=== PATIENT | female | born 1955 | race Caucasian/White ===

== ENCOUNTER 2017-09-17 13:41 | Emergency (ER) | payer OTHER ==
--- NOTE | 2017-09-17 15:18 | EDPHY ---
H & P Smoking Status: Never smoked Time Seen by Provider: 09/17/17 14:15 HPI/ROS: CHIEF COMPLAINT: Pruritic rash HISTORY OF PRESENT ILLNESS: 62-year-old female presents to the emergency department with pruritic rash. The patient states that she initially thought this was related to a spider bite from over 2 weeks ago in her right thigh. Since that time she has had a rash from her scalp down to her toes. It is intensely itchy. She saw her primary care provider a few days ago and was started on Bactrim antibiotic and was also treated for possible scabies using permethrin 5% cream. She used the permethrin cream as prescribed. She still continued to take Bactrim. Her biggest complaint is the intense itching. She did wash her sheets. No fevers or chills. She does share a bed with her who has no symptoms. She states that she has a history of very sensitive skin. She has been taking a large amount of Benadryl which is now causing her to have a headache. She denies dysphagia. Denies chest pain or difficulty breathing. REVIEW OF SYSTEMS: Constitutional: No fever, no chills. Eyes: No double or blurry vision. ENT: No sore throat. Respiratory: No cough, no shortness of breath. Cardiac: No chest pain. Gastrointestinal: No abdominal pain, vomiting or diarrhea. Genitourinary: No dysuria. Musculoskeletal: No neck or back pain. Skin: Rash as above Neurological: No headache. (Chelsie Fernández) Past Medical/Surgical History: Hysterectomy, hypertension, osteoarthritis, back pain (Chelsie Fernández) Social History: (Chelsie Fernández) Physical Exam: General Appearance: Alert, no distress. 97% on room air. Afebrile. Eyes: Pupils equal and round. Extraocular motions are all intact. ENT: Mouth: Mucous membranes moist. Respiratory: No wheezing, rhonchi, or rales, lungs are clear to auscultation. Cardiovascular: Regular rate and rhythm. Gastrointestinal: Abdomen is soft and nontender, no masses, no rebound or guarding, bowel sounds normal. Neurological: Alert and oriented x 3, cranial nerves II through XII grossly intact Skin: Patient has diffuse erythematous papular rash noted on upper extremities , lower extremities, back, chest and abdomen, lower extremities. The patient has a large lesion to the right anterior aspect of her proximal thigh with some mild surrounding erythema which is nontender. No induration. Numerous areas of excoriation. There is some darker necrotic looking tissue in the central aspect of the wound. Musculoskeletal: Nontender to palpate along the cervical, thoracic or lumbar spine. Neck is supple. Extremities: Full range of motion and no peripheral edema. Psychiatric: Patient is oriented X 3, there is no agitation. (Chelsie Fernández) Constitutional: Initial Vital Signs Temperature (C) 36.4 C 09/17/17 13:46 Heart Rate 88 09/17/17 13:46 Respiratory Rate 16 09/17/17 13:46 Blood Pressure 162/86 H 09/17/17 13:46 O2 Sat (%) 97 09/17/17 13:46 O2 Delivery Mode Room Air Allergies/Adverse Reactions: No Known Allergies Allergy (Unverified 09/17/17 13:46) Home Medications: Medication Instructions Recorded Cephalexin [Keflex] 500 mg PO QID #28 cap 09/17/17 Lisinopril 09/17/17 Permethrin 5% 09/17/17 Triamcinolone 0.1% [Triamcinolone 80 livier TP BID 4 Days cream 09/17/17 0.1% Cream (*)] Trimethoprim 09/17/17 predniSONE 10 mg PO DAILY #46 tab 09/17/17 Medical Decision Making ED Course/Re-evaluation: 62-year-old female presents with pruritic rash. The patient was also seen examined by Dr. Sakshi Moreno, secondary supervising physician who agrees with oral steroids. She also recommended topical steroids and adding Keflex. Patient will be referred to a boating safety officer. She was strongly encouraged not to itch the area. She was instructed to return if she developed fever, pain associated with her rash, or if she felt worse in any way. (Chelsie Fernández) Differential Diagnosis: Including but not limited to cellulitis, MRSA, folliculitis, contact dermatitis , impetigo (Chelsie Fernández) Other Provider: I evaluated and participated in the management of the patient. I also evaluated the patient independently. My co-signature indicates that I have reviewed this chart and I agree with the findings and plan of care as documented. My personal H&P findings include: 62-year-old female presents with a pruritic rash. She had what she thought was a insect bite on her thigh about 2 weeks ago. She has been itching the area of the bite significantly and now has scabbing area of skin breakdown on her thigh. Since the blood bite she has had a very pruritic rash which has been from her scalp to her toes. She was treated for scabies but continues to itch. She is currently on Bactrim for possible folliculitis/cellulitis? On my examination she is pleasant, no respiratory distress. There is no swelling of the eyelids of her lips. No mucous membrane lesions. Patient does have papular rash on the arms, torso, and legs. There is a urticarial appearance to it. Patient will be treateded with topical steroids as well as oral steroids, and antihistamines. Antibiotics were switched to Keflex.. (Sakshi Moreno) Departure - Departure Disposition: Home, Routine, Self-Care Clinical Impression: Pruritic rash Condition: Good Instructions: Acute Rash (ED) Additional Instructions: Prednisone taper as directed. Referrals: NING CHRISTOPHER [Primary Care Provider] - As per Instructions Jaye Maurice MD [Medical Doctor] - As per Instructions LAXMI RESENDEZ [Medical Doctor] - As per Instructions Prescriptions: Cephalexin [Keflex] 500 mg PO QID #28 cap predniSONE 10 mg PO DAILY #46 tab Triamcinolone 0.1% [Triamcinolone 0.1% Cream (*)] 80 livier TP BID 4 Days cream
[2017-09-17 16:01] VITALS: BP 137/66
== END 2017-09-17 16:00 | disposition home or self-care (01) ==
DX: L29.9 Pruritus, unspecified (principal); I10 Essential (primary) hypertension

== ENCOUNTER 2018-04-01 09:58 | Inpatient (IN) | payer OTHER ==
--- NOTE | 2018-04-01 10:06 | EDPHY ---
H & P Time Seen by Provider: 04/01/18 10:01 HPI/ROS: CHIEF COMPLAINT: Referred to ED by work study student HISTORY OF PRESENT ILLNESS: Patient presents the emergency department at the recommendation of her work study student. Patient has a history of pustular psoriasis and is on a number of medications including methotrexate recently completed a course of minocycline. Secondary to ongoing redness she was referred to the ED by her work study student for admission to the hospital for inpatient IV antibiotic therapy. The patient denies any additional symptoms of fever, cough or congestion. She is somewhat frustrated that she is having progressive cellulitic changes. Patient did have a history of a mild cellulitis earlier this year which was treated successfully with Keflex as an outpatient. REVIEW OF SYSTEMS: A comprehensive 10 point review of systems is otherwise negative aside from elements mentioned in the history of present illness. Source: Patient Exam Limitations: No limitations - Medical/Surgical History Hx Asthma: No Hx Chronic Respiratory Disease: No Hx Diabetes: No Hx Cardiac Disease: No Hx Renal Disease: No Hx Cirrhosis: No Hx Alcoholism: No Hx HIV/AIDS: No Hx Splenectomy or Spleen Trauma: No Other PMH: hysterectomy, osetoarthritis, back pain, HTN - Social History Smoking Status: Never smoked - Physical Exam Exam: General Appearance: Alert, no distress Eyes: Pupils equal and round no pallor or injection ENT, Mouth: Mucous membranes moist Respiratory: There are no retractions, lungs are clear to auscultation Cardiovascular: Regular rate and rhythm Gastrointestinal: Abdomen is soft and nontender, no masses, bowel sounds normal Neurological: 5/5 strength all 4 extremities Skin: Changes consistent with pustular psoriasis noted to the bilateral lower extremities Musculoskeletal: Neck is supple nontender Extremities: Extensive edema noted bilaterally Psychiatric: Patient is oriented X 3, there is no agitation Constitutional: Initial Vital Signs Temperature (C) 36.6 C 04/01/18 10:04 Heart Rate 121 H 04/01/18 10:04 Respiratory Rate 16 04/01/18 10:04 Blood Pressure 159/85 H 04/01/18 10:04 O2 Sat (%) 96 04/01/18 10:04 O2 Delivery Mode Room Air Allergies/Adverse Reactions: Sulfa (Sulfonamide Antibiotics) Allergy (Verified 04/01/18 10:01) eye dilating drops Allergy (Uncoded 04/01/18 10:01) Home Medications: Medication Instructions Recorded Amlodipine Besylate 12/20/17 Hydroxyzine HCl 12/20/17 Methotrexate 12/20/17 Gentamicin 0.1% 04/01/18 Lasix 04/01/18 Minocycline HCl 04/01/18 Taltz Autoinjector 04/01/18 Medical Decision Making ED Course/Re-evaluation: The patient presents the emergency department at the recommendation of her work study student for admission for IV antibiotics secondary to refractory treatment of her pustular psoriasis complicated by cellulitis. The patient is nontoxic and well-appearing. She has no septic physiology. The patient had an IV established. Blood cultures x2 have been obtained. The patient received 1 g of IV Ancef. I consulted with the hospitalist at noon and they have agreed for admission for IV antibiotic therapy. The patient will be admitted by Dr. Khanna. Differential Diagnosis: Differential diagnosis considered includes cellulitis, septic arthritis, abscess , psoriasis - Data Points Laboratory Results: Laboratory Results 04/01/18 10:28 04/01/18 10:28 04/01/18 04/01/18 10:28 10:28 WBC 4.45 10^3/uL 10^3/uL (3.80-9.50) RBC 4.32 10^6/uL 10^6/uL (4.18-5.33) Hgb 12.9 g/dL g/dL (12.6-16.3) Hct 38.6 % % (38.0-47.0) MCV 89.4 fL fL (81.5-99.8) MCH 29.9 pg pg (27.9-34.1) MCHC 33.4 g/dL g/dL (32.4-36.7) RDW 14.6 % % (11.5-15.2) Plt Count 267 10^3/uL 10^3/uL (150-400) MPV 9.9 fL fL (8.7-11.7) Neut % (Auto) 46.1 % % (39.3-74.2) Lymph % (Auto) 37.1 % % (15.0-45.0) [place] % (Auto) 9.2 % % (4.5-13.0) Eos % (Auto) 6.5 % % (0.6-7.6) Baso % (Auto) 0.9 % % (0.3-1.7) Nucleat RBC Rel Count 0.0 % % (0.0-0.2) Absolute Neuts (auto) 2.05 10^3/uL 10^3/uL (1.70-6.50) Absolute Lymphs (auto) 1.65 10^3/uL 10^3/uL (1.00-3.00) Absolute Monos (auto) 0.41 10^3/uL 10^3/uL (0.30-0.80) Absolute Eos (auto) 0.29 10^3/uL 10^3/uL (0.03-0.40) Absolute Basos (auto) 0.04 10^3/uL 10^3/uL (0.02-0.10) Absolute Nucleated RBC 0.00 10^3/uL 10^3/uL (0-0.01) Immature Gran % 0.2 % % (0.0-1.1) Immature Gran # 0.01 10^3/uL 10^3/uL (0.00-0.10) Sodium 144 mEq/L mEq/L (135-145) Potassium 3.4 mEq/L mEq/L (3.3-5.0) Chloride 107 mEq/L mEq/L (97-110) Carbon Dioxide 27 mEq/l mEq/l (22-31) Anion Gap 10 mEq/L mEq/L (6-14) BUN 6 mg/dL L mg/dL (7-23) Creatinine 0.7 mg/dL mg/dL (0.6-1.0) Estimated GFR > 60 Glucose 103 mg/dL H mg/dL (70-100) Calcium 11.0 mg/dL H mg/dL (8.5-10.4) Phosphorus 3.0 mg/dL mg/dL (2.5-4.5) Medications Given: Discontinued Medications Cefazolin Sodium/Dextrose (Ancef 1 Gm (Premix)) 50 mls @ 200 mls/hr IV EDNOW ONE PRN Reason: Protocol Stop: 04/01/18 11:26 Last Admin: 04/01/18 11:33 Dose: 50 mls Departure - Departure [facility] Clinical Impression: Bilateral lower leg cellulitis, Pustular psoriasis Condition: Good Referrals: NING CHRISTOPHER [Primary Care Provider] - As per Instructions
[2018-04-01 10:43] LABS: PLATELET COUNT 267 10^3/uL (150-400)
[2018-04-01] MEDS ORDERED: ONDANSETRON 4 MG/2 ML VIAL IVP PRN (12:06)
[2018-04-01] MEDS ORDERED: ONDANSETRON DISINTEGRATING 4 MG TAB PO PRN (12:06)
[2018-04-01] MEDS ORDERED: ACETAMINOPHEN 325 MG TAB PO PRN (12:06)
[2018-04-01] MEDS ORDERED: HYDROmorphONE/DILAUDID 1 MG/ML INJ IVP PRN (12:06)
--- NOTE | 2018-04-01 13:59 | PDGENHP ---
<Albina De Jesus - Last Filed: 04/01/18 15:05> History and Physical - Chief Complaint "My legs are swollen and I have wounds that ooze." - History of Present Illness This is a calm and cooperative 63 y/o female who presents to the ED, having endured 7 months worth of skin-related complications that continue to persist regardless of multiple treatments. In August 2017, she developed a rash on her right thigh which she initially thought was from bug bites because she normally has a rash after a bite. She itched them to the point that she caused an infection (pus), the wound culture was negative. She was given Keflex but she reports this didn't help the rash. She isn't sure if she is allergic to Sulfa - she had a rash starting before Keflex began. She tried many medications: many topical steroid creams, Prednisone and anti-histamines. In October 2017, she continued to have these rashes all over her body (back, abdomen, hands, legs). This is the first time she noticed her legs swelling and thought it was caused from the medications. She stopped Prednisone and was placed on methotrexate and Humira and was diagnosed with pustular psoriasis. Her PCP is Dr. Romo at [facility]. She does have a firewood cutter, however I did not gather their name. She had multiple blood tests and of particular significance is an elevated Gwynn/Lamda free chain ratio (MGUS). TSH is normal. She has been taking furosemide for the leg swelling but hasn't noticed any difference. She finished minocycline therapy yesterday. Continues to take methotrexate. She believes Humira was helping her because her back, arms, stomach lesions have improved in appearance but needed to switch to Ixekizumab and received this yesterday. She was sent by her facility coordinator, Dr. Taylor Alvarado from [facility], d/t worsening appearance of her bilateral lower extremities and purulent drainage. It is difficult to differentiate between cellulitis and her pustular psoriasis. Past Medical/Surgical History 1. Pustular psoriasis 2. HTN 3. OA 4. Hysterectomy 5. Chronic back pain 6. Cataract surgery Social 1. Lives with her , Oliver, in [place]. Has one dog (swedish joseph) 2. Denies tobacco or illicit drug use. Stopped drinking wine a year ago because she "drank a lot. I drank the box wine so I didn't know how much I was truly drinking but I took it out on myself and on Gene, so I stopped." Vital Signs 159/85 121 HR 16 Respirations 96% 36.6 History Information - Allergies/Home Medication List Allergies/Adverse Reactions: Sulfa (Sulfonamide Antibiotics) Allergy (Verified 04/01/18 11:59) Rash eye dilating drops Allergy (Uncoded 04/01/18 10:01) Home Medications: Methotrexate Sodium [Rheumatrex] 15 mg PO TH 12/20/17 [Last Taken 03/31/18] amLODIPine BESYLATE [Norvasc 10 mg (*)] 10 mg PO DAILY 12/20/17 [Last Taken ] ALPRAZolam [Xanax 0.25 MG (*)] 0.25 mg PO DAILY PRN 04/01/18 [Last Taken Unknown ] Folic Acid [Folic Acid 1 MG (*)] 1 mg PO DAILY 04/01/18 [Last Taken Unknown] Furosemide [Lasix 20 MG (*)] 20 mg PO DAILY 04/01/18 [Last Taken 04/01/18] Gentamicin 0.1% 1 livier TP BID 04/01/18 [Last Taken 03/31/18 21:00] Ixekizumab [Taltz Autoinjector] 80 mg SQ Q14D 04/01/18 [Last Taken 03/30/18] Minocycline HCl [Minocin 100 mg] 100 mg PO BID 04/01/18 [Last Taken 03/31/18 21: 00] I have personally reviewed and updated: family history, medical history, social history, surgical history Past Medical History: See HPI List - Surgical History Additional surgical history: See HPI List - Family History Additional family history: Grandmother of liver cancer and had RA - Social History Smoking Status: Never smoked Alcohol Use: Sober Drug Use: None Review of Systems Review of Systems: ROS: 10pt was reviewed & negative except for what was stated in HPI & below Constitutional: Reports: chills, recent illness (Otitis externa 2 weeks ago) EENMT: Reports: no symptoms Cardiac: Reports: no symptoms Respiratory: Reports: no symptoms Gastrointestinal: Reports: no symptoms Genitourinary: Reports: no symptoms Muscolosketal: Reports: back pain (Chronic) Skin: Reports: dryness, lesions, rash Neurological: Reports: anxiety, paresthesia Hematologic/Lymphatic: Reports: other Immunologic/Allergy: Reports: other Physical Exam Physical Exam: All systems negative except for: Skin: BLE edematous, erythematous, psoriasis-appearance crusted lesions. Pedal edema with non-pitting. Healing lesions to abdomen, back, and arms. Temp Pulse Resp BP Pulse Ox 36.6 C 94 16 152/94 H 96 04/01/18 12:24 04/01/18 12:24 04/01/18 12:24 04/01/18 12:24 04/01/18 12:24 Constitutional: no apparent distress, obese Eyes: PERRL, anicteric sclera, EOMI Ears, Nose, Mouth, Throat: moist mucous membranes, hearing normal, ears appear normal, no oral mucosal ulcers Cardiovascular: regular rate and rhythym, no murmur, rub, or gallop, tachycardia , No edema Peripheral Pulses: 1+: dorsalis-pedis (L) (Pedal non-pitting edema; radial 2+), 2+: dorsalis-pedis (R) (Pedal non-pitting edema; radial 2+) Respiratory: no respiratory distress, no rales or rhonchi, clear to auscultation Gastrointestinal: normoactive bowel sounds, soft, non-tender abdomen, no palpable masses Genitourinary: no bladder fullness, no bladder tenderness Skin: warm, erythema, rash, other Musculoskeletal: full muscle strength, no muscle tenderness, normal joint ROM, no joint effusions Neurologic: AAOx3, sensation intact bilaterally, CN II-XII Intact Psychiatric: interacting appropriately, not encephalopathic, thought process linear, anxious Lymph, Heme, Immunologic: no cervical LAD, no supraclavicular LAD Lab Data & Imaging Review 04/01/18 10:28 04/01/18 10:28 WBC 4.45 10^3/uL (3.80-9.50) 04/01/18 10:28 RBC 4.32 10^6/uL (4.18-5.33) 04/01/18 10:28 Hgb 12.9 g/dL (12.6-16.3) 04/01/18 10:28 Hct 38.6 % (38.0-47.0) 04/01/18 10:28 MCV 89.4 fL (81.5-99.8) 04/01/18 10:28 MCH 29.9 pg (27.9-34.1) 04/01/18 10:28 MCHC 33.4 g/dL (32.4-36.7) 04/01/18 10:28 RDW 14.6 % (11.5-15.2) 04/01/18 10:28 Plt Count 267 10^3/uL (150-400) 04/01/18 10:28 MPV 9.9 fL (8.7-11.7) 04/01/18 10:28 Neut % (Auto) 46.1 % (39.3-74.2) 04/01/18 10:28 Lymph % (Auto) 37.1 % (15.0-45.0) 04/01/18 10:28 [place] % (Auto) 9.2 % (4.5-13.0) 04/01/18 10:28 Eos % (Auto) 6.5 % (0.6-7.6) 04/01/18 10:28 Baso % (Auto) 0.9 % (0.3-1.7) 04/01/18 10:28 Nucleat RBC Rel Count 0.0 % (0.0-0.2) 04/01/18 10:28 Absolute Neuts (auto) 2.05 10^3/uL (1.70-6.50) 04/01/18 10:28 Absolute Lymphs (auto) 1.65 10^3/uL (1.00-3.00) 04/01/18 10:28 Absolute Monos (auto) 0.41 10^3/uL (0.30-0.80) 04/01/18 10:28 Absolute Eos (auto) 0.29 10^3/uL (0.03-0.40) 04/01/18 10:28 Absolute Basos (auto) 0.04 10^3/uL (0.02-0.10) 04/01/18 10:28 Absolute Nucleated RBC 0.00 10^3/uL (0-0.01) 04/01/18 10:28 Immature Gran % 0.2 % (0.0-1.1) 04/01/18 10:28 Immature Gran # 0.01 10^3/uL (0.00-0.10) 04/01/18 10:28 Sodium 144 mEq/L (135-145) 04/01/18 10:28 Potassium 3.4 mEq/L (3.3-5.0) 04/01/18 10:28 Chloride 107 mEq/L (97-110) 04/01/18 10:28 Carbon Dioxide 27 mEq/l (22-31) 04/01/18 10:28 Anion Gap 10 mEq/L (6-14) 04/01/18 10:28 BUN 6 mg/dL (7-23) L 04/01/18 10:28 Creatinine 0.7 mg/dL (0.6-1.0) 04/01/18 10:28 Estimated GFR > 60 04/01/18 10:28 Glucose 103 mg/dL (70-100) H 04/01/18 10:28 Calcium 11.0 mg/dL (8.5-10.4) H 04/01/18 10:28 Phosphorus 3.0 mg/dL (2.5-4.5) 04/01/18 10:28 Assessment & Plan Plan: 63 y/o female with bilateral lower leg cellulitis and pustular psoriasis. 1. Cellulitis -Blood culture pending -Wound culture ordered; per pt, drainage is purulent -Consulted ID; LVM for Dr. Kalpesh Oneal -IV Vancomycin 2. Pustular Psoriasis -Holding methotrexate (she takes this medication on and I do not think she will be here for that length of time) -Holding Ixekizumab (she received this yesterday and receives it Q14 days) -Pain medications PO/IV PRN 3. BLE Swelling: nature of the edema is unknown; possibly venous stasis and more unlikely, cardiac-related (heart failure, cardiomyopathy) or could be from her home medications of steroids and HTN medication -Continue furosemide 4. HTN -Continue amlodipine -Vasotec PRN 5. Tachycardic: possibly emotionally-driven as she is anxious and tired of "dealing with this." -Continue to monitor Diet: Regular VTE ppx: Ambulating in hallway and room independently privileges. SCDs painful for pt as her lesions are located BLE. Lovenox subq unnecessary at this point unless she will be spending more than one night in the hospital. Code: Full Dispo: Admit to obs <Khanna,Anu - Last Filed: 04/01/18 18:56> History and Physical - History of Present Illness Review of Systems Review of Systems: Physical Exam Physical Exam: Temp Pulse Resp BP Pulse Ox 36.7 C 103 H 18 150/78 H 90 L 04/01/18 15:44 04/01/18 15:44 04/01/18 15:44 04/01/18 15:44 04/01/18 15:44 Lab Data & Imaging Review 04/01/18 10:28 04/01/18 10:28 WBC 4.45 10^3/uL (3.80-9.50) 04/01/18 10:28 RBC 4.32 10^6/uL (4.18-5.33) 04/01/18 10:28 Hgb 12.9 g/dL (12.6-16.3) 04/01/18 10:28 Hct 38.6 % (38.0-47.0) 04/01/18 10:28 MCV 89.4 fL (81.5-99.8) 04/01/18 10:28 MCH 29.9 pg (27.9-34.1) 04/01/18 10:28 MCHC 33.4 g/dL (32.4-36.7) 04/01/18 10:28 RDW 14.6 % (11.5-15.2) 04/01/18 10:28 Plt Count 267 10^3/uL (150-400) 04/01/18 10:28 MPV 9.9 fL (8.7-11.7) 04/01/18 10:28 Neut % (Auto) 46.1 % (39.3-74.2) 04/01/18 10:28 Lymph % (Auto) 37.1 % (15.0-45.0) 04/01/18 10:28 [place] % (Auto) 9.2 % (4.5-13.0) 04/01/18 10:28 Eos % (Auto) 6.5 % (0.6-7.6) 04/01/18 10:28 Baso % (Auto) 0.9 % (0.3-1.7) 04/01/18 10:28 Nucleat RBC Rel Count 0.0 % (0.0-0.2) 04/01/18 10:28 Absolute Neuts (auto) 2.05 10^3/uL (1.70-6.50) 04/01/18 10:28 Absolute Lymphs (auto) 1.65 10^3/uL (1.00-3.00) 04/01/18 10:28 Absolute Monos (auto) 0.41 10^3/uL (0.30-0.80) 04/01/18 10:28 Absolute Eos (auto) 0.29 10^3/uL (0.03-0.40) 04/01/18 10:28 Absolute Basos (auto) 0.04 10^3/uL (0.02-0.10) 04/01/18 10:28 Absolute Nucleated RBC 0.00 10^3/uL (0-0.01) 04/01/18 10:28 Immature Gran % 0.2 % (0.0-1.1) 04/01/18 10:28 Immature Gran # 0.01 10^3/uL (0.00-0.10) 04/01/18 10:28 Sodium 144 mEq/L (135-145) 04/01/18 10:28 Potassium 3.4 mEq/L (3.3-5.0) 04/01/18 10:28 Chloride 107 mEq/L (97-110) 04/01/18 10:28 Carbon Dioxide 27 mEq/l (22-31) 04/01/18 10:28 Anion Gap 10 mEq/L (6-14) 04/01/18 10:28 BUN 6 mg/dL (7-23) L 04/01/18 10:28 Creatinine 0.7 mg/dL (0.6-1.0) 04/01/18 10:28 Estimated GFR > 60 04/01/18 10:28 Glucose 103 mg/dL (70-100) H 04/01/18 10:28 Calcium 11.0 mg/dL (8.5-10.4) H 04/01/18 10:28 Phosphorus 3.0 mg/dL (2.5-4.5) 04/01/18 10:28 Assessment & Plan Assessment: Bilateral lower leg cellulitis (Acute) Pustular psoriasis (Acute) Plan: ADDENDUM: Saw and examined patient. Discussed w/ Sakshi De Jesus. 63yo F w/ b/l pustular psoriasis, immunocompromised on biologic, lymphedema who p/w persistent mild-mod erythema and chronic purulent drainage of b/l feet ( erythema appears to be more like venous stasis dermatitis). Took outpt minocycline x 10 days. Sent to here by her Window Glazier for IV Abx. Giving IV vanco today and tomorrow. Observe overnight. Tomorrow --- consider to DC on po Abx - likely clindamycin which has good MRSA coverage. ID may be consulted if patient needs to stay here longer. Also gave pt advice about vasc FU for b/l foot/ankle edema [she can get set up w / lymphedema clinic w/ wound care and/or consult w/ IR or vasc surg as an outpatient]
[2018-04-01] MEDS: oxyCODONE IR 5 MG TAB PO PRN ×3 (14:04→21:46)
[2018-04-01] MEDS ORDERED: ALPRAZolam 0.25 MG TAB PO PRN (14:36)
[2018-04-01] MEDS ORDERED: ENALAPRILAT DIHYDRATE 1.25 MG/ML VIAL IVP PRN (14:38)
[2018-04-01] MEDS: VANCOMYCIN 1.25 GM in NS 250 ML IV SCH (15:44)
--- NOTE | 2018-04-01 15:56 | WOCRNPDOC ---
WOCRN Advanced Assessment Note - Skin Integrity Problem, Advanced Assess Bilateral Lower Leg Dressing Type: Open to Air Melita Wound Tissue: Erythema, Swollen, Scaly, Xerotic, Crusted, Lichenification ( mild) Pulse Location & Description: 2+ Pitting Extremity Temperature: Warm Skin Integrity Problem Comment: Patient with pitting edema in feet to thighs. States she does not wear compression due to difficuties in putting it on. Discussed Toya. [facility].. difficult to assess whether there is hemosiderin staining due to erythema but there is dermatological changes along both legs. Patient does not clean feet/ legs much as she is worried about opening the skin. Discussed need for possible cream to moisturize as she is getting cracks on her achilles area from the large amounts of dry skin and psoriasis build up. Will try nutrishield cream per patient tolerance. Wound care will sign off. Recommended RN clean feet/toes with washcloth/foaming soap.
[2018-04-02] MEDS: oxyCODONE IR 5 MG TAB PO PRN ×4 (02:26→19:38)
[2018-04-02] MEDS: VANCOMYCIN 1.25 GM in NS 250 ML IV SCH (03:32)
[2018-04-02] MEDS: FOLIC ACID 1 MG TAB PO SCH (08:38)
[2018-04-02] MEDS ORDERED: FUROSEMIDE 20 MG TAB PO SCH (09:00)
--- NOTE | 2018-04-02 10:32 | ASMTCMCOM ---
CM Note CM Note Notes: CM reviewed pt's chart for d/c planning. Pt is a 63 y/o female who was sent to the ED by her automotive upholsterer. She had endured 7 months worth of skin-related complications that persisted regardless of treatments. Pt is being treated for cellulitis and postular psoriasis. Pt works as a medical receptionist assistant at [employer] and lives at home with her Oliver. PT/OT have not been ordered and no CM needs are anticipated. CM will follow for changes. D/C Plan: Anticipate independent. Date Signed: 04/02/2018 10:31 AM Electronically Signed By:Blanca Bush
--- NOTE | 2018-04-02 10:43 | HOSPPROG ---
Hospitalist Progress Note Assessment/Plan: 63-year-old is admitted with increasing lower extremity pain swelling and erythema. She was recently diagnosed with pustular psoriasis in the summer and has been on a number of immune suppressants since then. Initially she was on cyclosporin with fairly good improvement however recently was switched to Humira and her pustular psoriasis has since worsened. She is followed by Dermatology who recommend she come into the hospital for IV antibiotics for possible superinfection. Her legs are significantly more painful and erythematous than baseline. It is unclear if this is infection versus worsening inflammation and psoriasis # severe pustular psoriasis currently on Humira with worsening symptoms. Currently on IV Vanco although she has never had a history of MRSA * reviewed with ID and given negative procalc concern for cellulitis is low, will dc antibiotics * work on decreasing edema to help with pain * Continue supportive care and wound care # cellulitis versus inflammation. Id consult as above # edema: bilateral, severe. new per derm Etiology could include the amlodipine but will eval * dc amlodipine * discuss 3-layer wrap with wound care * IV lasix today and follow * replace K * will need additional midnight stay for treatment and evaluation of edema and pain # hypercalcemia noted present since January. 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 * Consider further evaluation or oncology consult if the above is unremarkable. Could her skin issues be a paraneoplastic syndrome # hypertension: dc amlodipine and start lisinopril # osteoarthritis M Subjective: Patient new to [place] and chart reviewed complains of severe pain and swelling on her bilateral lower extremities. No fevers has had chills that she suspects is from the inflammation of her psoriasis. Objective: Vital Signs Temp Pulse Resp BP Pulse Ox 36.6 C 77 15 130/59 H 94 04/02/18 07:30 04/02/18 07:30 04/02/18 07:30 04/02/18 07:30 04/02/18 07:30 Microbiology 04/01/18 15:40 Gram Stain - Final Foot - Swab 04/01/18 04/02/18 04/03/18 05:59 05:59 05:59 Intake Total 1700 Output Total 1600 Balance 100 - Physical Exam Constitutional: chronically ill appearing, uncomfortable Eyes: PERRL Ears, Nose, Mouth, Throat: moist mucous membranes Cardiovascular: regular rate and rhythym Respiratory: no respiratory distress, clear to auscultation Gastrointestinal: soft, non-tender abdomen Skin: warm, erythema (Erythema warmth and edema bilateral lower extremities tender to palpation), rash (Pustular psoriasis bilateral legs up to her knees which is quite severe but present throughout her entire body with less pustules noted.) Musculoskeletal: no joint effusions Neurologic: AAOx3 Psychiatric: interacting appropriately, not anxious ICD10 Worksheet Patient Problems: Problems Problem Status Onset Bilateral lower leg cellulitis Acute Pustular psoriasis Acute
[2018-04-02] MEDS ORDERED: FUROSEMIDE 40 MG/4 ML VIAL IVP ONE (15:09)
[2018-04-02] MEDS ORDERED: PROTOCOL POTASSIUM 1 DOSE MISC PRN (15:10)
[2018-04-02] MEDS ORDERED: POTASSIUM CL 20 MEQ TAB PO ONE (15:11)
[2018-04-02] MEDS: ERGOCALCIFEROL 50,000 I.UNIT CAP PO SCH (16:02)
[2018-04-02] MEDS ORDERED: POTASSIUM CL 10 MEQ TAB PO ONE (21:04)
[2018-04-03] MEDS: oxyCODONE IR 5 MG TAB PO PRN ×2 (03:15→08:40)
[2018-04-03 04:51] LABS: PLATELET COUNT 215 10^3/uL (150-400)
[2018-04-03] MEDS ORDERED: POTASSIUM CL 10 MEQ TAB PO ONE (06:54)
[2018-04-03 07:33] VITALS: BP 133/72
[2018-04-03] MEDS: FOLIC ACID 1 MG TAB PO SCH (08:40)
[2018-04-03] MEDS: ERGOCALCIFEROL 50,000 I.UNIT CAP PO SCH (08:40)
[2018-04-03] MEDS ORDERED: LISINOPRIL 10 MG TAB PO SCH (09:00)
--- NOTE | 2018-04-03 09:45 | GCON ---
INPATIENT INFECTIOUS DISEASE CONSULTATION REFERRING PHYSICIAN: Xiao Hodges MD REASON FOR REFERRAL: Bilateral leg inflammation. HISTORY OF PRESENT ILLNESS: Patient is a 63-year-old female with an underlying diagnosis of psoriati c pustular psoriasis and dermatitis. Patient relates that she had been diagnosed over a year ago and had been managed with cyclosporine for a period of time with great success, but that due to side eff ects of the cyclosporine medication, she was transitioned over initially to Humira, and then to a new rheumatologic medicine called . Once she changed over to the Humira, the patient noticed that the pustular psoriasis began to return. She had a followup with her aitchbone breaker late this , and the aitchbone breaker directed her into admission at [facility] out of concerns for superinfection of the lesions. Patient reports that both legs are swollen and red. She does report, however, that everyt maximo is symmetric. The rashes on her legs are symmetric, as well as any buildup or of tis ron that come along with the underlying diagnosis. She reports no fevers or chills. PAST MEDICAL HISTORY: 1. Pustular psoriasis. 2. Hypertension. 3. Osteoarthritis. 4. Chronic back pain. PAST SURGICAL HISTORY: 1. Status post hysterectomy. 2. Status post cataract surgery. ANTIBIOTICS: Vancomycin. ALLERGIES: Patient is allergic to sulfa. SOCIAL HISTORY: Patient lives in [place]. She is . No significant tobacco or drug use. Neda hines used to drink alcohol at a greater level, but now has stopped for the last year. FAMILY HISTORY: Reviewed, but noncontributory. REVIEW OF SYSTEMS: Other than that detailed above in history of present illness, comprehensive 10-sy stem review is negative. PHYSICAL EXAMINATION: VITAL SIGNS: Temperature maximum is 36.9, temperature current is 36.3, heart rate is 92, respiratory rate is 17, blood pressure is 144/76. GENERAL: Patient is a well-formed, we ll-nourished, overweight, older female in no acute distress. She is not toxic in appearance. She is alert and oriented x3. She is very pleasant in demeanor. HEENT: Normocephalic for age. Atraumati c. No scleral icterus. No oral lesion or drainage from the nares. Eyes, lids, and conjunctivae are within normal limits. Pupils are equal and round bilaterally. LUNGS: Clear to auscultation bilate rally. HEART: Regular rate and rhythm. No significant murmur, rub, or gallop noted. EXTREMITIES: Patient does have peripheral edema bilateral lower extremities 2 to 3+. SKIN: Warm and dry to the touch. Patient has erythema of bilateral lower extremities below the knee. She also has areas of __ and angry weeping superficial ulcers and lesions. Interestingly, the distribution on the lo wer extremities is symmetric bilaterally. LABORATORY DATA: The patient has a CBC dated 04/01/2018, which is completely within normal limits. White blood cells are 4.45, hemoglobin is 12.9, hematocrit is 38.6, and platelet count is 267. Diffe rentials on the white cells are within normal limits. Serum chemistries on 04/01/2018, are all withi n normal limits, apart from an elevated calcium of 11.0. Total vitamin D is low at 19.1. Procalcito daniel is very low at 0.03. Intact parathyroid hormone is elevated at 202.5. MICROBIOLOGIC DATA: Blood cultures from 04/01/2018, are no growth to date. Gram stain from a wound swab of one of her feet has 1+ gram-positive cocci and 1+ gram-positive rods. The wound culture is p reliminarily growing mixed cutaneous luis a. Blood cultures from 04/01, are no growth to date. ASSESSMENT: Return and resurgence of pustular psoriasis in bilateral lower extremities. I see no ev idence of superinfection of these areas, and I think that the complaints of the patient of swelling, redness, and drainage of the legs bilaterally is secondary to the underlying diagnosis of psoriasis a lone. I would discontinue the antibiotic vancomycin at this point and observe. Would advise [facility] to reconnect with aitchbone breaker to think about what other options are possible for the managemen t of the pustular psoriasis. /[id number]/MODL
--- NOTE | 2018-04-03 11:45 | ECHO ---
[email or web address] [address] [address] Main: [phone] Fax: Transthoracic Echocardiogram Name: RADHA WILL MR#: [id number] Study Date: 04/03/2018 Study Time: 07:59 AM Date of : 1955 Age: 63 year(s) Height: 160 cm (63 in.) Weight: 97.52 kg (215 lb.) BSA: 1.99 m2 Gender: Female Examination: Echo Indication: Edema Image Quality: Good Contrast: Requested by: Xiao Hodges BP: 133 mmHg/72 mmHg Heart Rate: Rhythm: Indication: Edema Procedure Staff Photographer'S Model: Jaye Robles [facility] Reading Physician: Trav Escalante MD Requesting Provider: Conclusions: 1)Normal to hyperdynamic LV systolic function with a LVEF of 70% and normal wall motions. 2)Mild diastolic dsyfunction noted. 3)Mild left atrial enlargement noted. 4)Mild MR without MV prolapse. 5)Mild TR with estimated normal PA pressures. Measurements: Chambers Valvular Assessment AV/MV Valvular Assessment TV/PV Normal Normal Normal Name Value Range Name Value Range Name Value Range Ao Mayelin (MM): 3.3 cm (2.2 cm-3.7 AV Vmax: 2.09 m/s (1 m/s-1.7 TR Vmax: 2.41 mm/s ( - ) cm) m/s) TR PGmax: 23 mmHg ( - ) IVSd (2D): 0.8 cm (0.6 cm-1.1 AV meanP mmHg ( - ) syst. PAP: 28 mmHg ( - ) cm) MV E Vmax: 1.25 m/s ( - ) LVDd (2D): 5.3 cm (3.9 cm-5.3 MV A Vmax: 1.41 m/s ( - ) cm) MV E/A: 0.89 ( - ) LVDs (2D): 2.8 cm (2.1 cm-4 cm) LVPWd (2D): 1.0 cm ( - ) LVEF (MOD4): 70 % (>=55 %) Continued Measurements: Chambers Valvular Assessment AV/MV Valvular Assessment TV/PV Name Value Name Value Name Value LADs: 4.3 cm MV E' Septal: 0.06 m/s CVP (est.): 5 mmHg LADs Lon.7 cm MV E/E' Septal: 21.00 LA Area: 21.3 cm2 MV E/E' Lateral: 16.20 Patient: RADHA WILL Study Date: 04/03/2018 Page 1 of 2 07:59 AM Additional Vessels Name Value Ao Ascendin.2 cm Findings: Left Ventricle: Normal size left ventricle. No LV hypertrophy. Normal global systolic LV function. EF is 70 %. No regional wall motion abnormality. Diastolic dysfunction is present. . Right Ventricle: Normal size right ventricle. Left Atrium: The left atrium is normal in size. Right Atrium: The right atrium is normal in size. Mitral Valve: Mild mitral annular calcification. Mild mitral valve regurgitation is present. Aortic Valve: The aortic valve is normal in appearance and function. The aortic valve is tri-leaflet. Tricuspid Valve: The tricuspid valve is normal in appearance and function. Mild tricuspid regurgitation is present. RVSP is 28mmHG.. Pulmonic Valve: The pulmonic valve is normal in appearance and function. Mild pulmonic valve regurgitation is noted. Aorta: The aorta is normal. Pericardium: No pericardial effusion. There is pericardial fat. (No Signature Object) Patient: RADHA WILL Study Date: 04/03/2018 Page 2 of 2 07:59 AM [id number]
--- NOTE | 2018-04-03 18:37 | GDS ---
DIAGNOSES: 1. Exacerbation of her pustular psoriasis. 2. Bilateral lower extremity edema likely secondary to Norvasc, as well as recent prednisone use, as well as inflammation from her psoriasis. 3. Staphylococcus aureus, methicillin sensitive, colonization on her lower extremities. 4. Does not appear to be active cellulitis, but will treat with 7 days of antibiotics because of her risk. 5. Hypertension. Discontinuation of Norvasc and starting Bystolic. 6. Osteoarthritis. 7. Chronic back pain. HOSPITAL COURSE: The patient is a very nice 63-year-old woman with a history significant for pustula r psoriasis. She has been followed closely by her machine sweeper brush maker as an outpatient and has been on a nu mber of medications, most recently Humira. She comes in with increasing pain and swelling of her lowe r extremities. The machine sweeper brush maker was concerned for possible cellulitis, so she was admitted for [facility] evaluation. On admission, her white count was normal. Infectious Disease did consult and see the patient and felt that her inflammation was causing the erythema and less likely cellulitis. She did receive 24 hours of vancomycin. Blood cultures are negative. Wound culture did reveal MSSA, it is unclear if this is a colonization versus a cellulitis, but given the bilateral nature, I suspect it is most likely a colo nization, but would err on the side of caution and continue treatment for another 7 days. Regarding her edema, this was thought secondary to multitude of issues, including inflammation from h er psoriasis, prednisone use recently, and her antihypertensive, amlodipine. Her amlodipine was disco ntinued. She was given some IV Lasix and her feet were elevated. She did have significant improvement of her edema at the time of discharge. An echocardiogram was ordered and the results pending at the time of discharge. Her amlodipine was discontinued and she will be switched to Bystolic. I also incre ased her Lasix from 20 mg to 40 mg daily. She has some potassium chloride at home which she will resu me. She will follow up with her primary care provider tomorrow and have her electrolytes rechecked at that time. CONDITION ON DISCHARGE: Good. Vital signs are stable. She has been afebrile. Heart rate 92, blood pr essure 133/72. She is alert and oriented. She does have significant improvement in her edema, as well as erythema on her lower extremities. DISCHARGE MEDICATIONS: Please see discharge medication form. Of note, her Lasix was increased from 2 0 to 40 mg daily. She will resume her potassium and her antihypertensive was changed from amlodipine to Bystolic. She will be placed on cephalexin for 7 days. At that time, her machine sweeper brush maker can decide if she wants to switch her back to minocycline. FOLLOWUP INSTRUCTION: She will follow up with Dr. Romo tomorrow and her machine sweeper brush maker on Wednesday. Total time spent with patient on day of discharge in coordination of care is 35 minutes. Copy requested to: Dr. Taylor Alvarado /[id number]/MODL
--- NOTE | 2018-04-03 18:37 | PDMN ---
Medical Necessity Medical necessity: MCG: GRG wound and skin disorders : sever pustular psoriasis with bilat edema, cellulitis vs inflammation, hypercalcemia, HTN, status changed to INPT 04/02 for ongoing monitoring and tx of above
== END 2018-04-03 13:06 | disposition home or self-care (01) | DRG 607 ==
LOC: INTOOBSV 11:39 → F3N 12:29 → OBSVTOIN 04-02 16:49
PROVIDERS: ADMIT Internal Medicine; ATTEND Internal Medicine
DX: L40.1 Generalized pustular psoriasis (principal); R60.0 Localized edema; T46.5X5A Adverse effect of other antihypertensive drugs, initial encounter; T38.0X5A Adverse effect of glucocorticoids and synthetic analogues, initial encounter; L03.115 Cellulitis of right lower limb; L03.116 Cellulitis of left lower limb; B95.61 Methicillin susceptible Staphylococcus aureus infection as the cause of diseases classified elsewhere; E83.52 Hypercalcemia; M54.5 Low back pain; I10 Essential (primary) hypertension; M19.90 Unspecified osteoarthritis, unspecified site
CPT/HCPCS: 96365; G0378; J0690; J1940; J3370